=== PATIENT | female | born 1960 | race Hispanic/Latino ===

== ENCOUNTER 2018-06-21 20:47 | Inpatient (IN) | payer OTHER ==
[2018-06-21 22:03] LABS: Basophils # (Auto) 0.1 K/mm3 (0.0-0.1); Eosinophils # (Auto) 0.2 K/mm3 (0.0-0.4); Eosinophils % (Auto) 2.2 % (0.0-4.3); Lymphocytes # (Auto) 2.8 K/mm3 (1.2-5.4); Mean Corpuscular HGB Conc 35 % (30-34); Mean Corpuscular Volume 95 fl (79-97); Monocytes # (Auto) 0.6 K/mm3 (0.0-0.8); Monocytes % (Auto) 7.3 % (0.0-7.3); Platelet Count 371 K/mm3 (140-440); Red Blood Count 4.55 M/mm3 (3.65-5.03); Red Cell Distribution Width 14.5 % (13.2-15.2)
[2018-06-21 22:07] LABS: BUN/Creatinine Ratio 13; Blood Urea Nitrogen 8 mg/dL (7-17); Calcium 9.3 mg/dL (8.4-10.2); Hemolysis Index 18
[2018-06-21] MEDS ORDERED: DILAUDID IV ONE (22:17)
[2018-06-21] MEDS ORDERED: NITRO-BID 2% TP ONE (22:17)
[2018-06-21] MEDS ORDERED: ZOFRAN IV ONE (22:17)
--- NOTE | 2018-06-21 22:19 | Emergency Department Report ---
ED Chest Pain HPI - General Chief Complaint: Chest Pain Stated Complaint: CHEST PAIN Time Seen by Provider: 06/21/18 22:06 Source: EMS Mode of arrival: Stretcher Limitations: No Limitations - History of Present Illness Initial Comments: 57-year-old female with a past medical history of CAD with stent placement in 2008, hypertension, and emphysema (continues to smoke) presents to the hospital with complaints of left sided chest pain that a past 3 days. Patient states it feels similar to when she had her last heart attack. Pain was intermittent but now become a more constant and severe. She called EMS over the weekend. When they came to assess her and she told her her EKG was normal and therefore patient elected not to come to the hospital. Patient states that pain continued. It is worse with movement and breathing. No change with palpation. Pain radiates down the left arm. Positive associated nausea without vomiting. Patient is compliant with aspirin 81 mg, carvedilol, and amlodipine. PMD: Dr. Luna. She does not have a commercial subcontractor. Patient received aspirin and nitroglycerin in route to the hospital with temporary improvement in pain. Severity scale (0 -10): 5 - Related Data Allergies Allergy/AdvReac Type Severity Reaction Status Date / Time No Known Allergies Allergy Unverified 06/21/18 21:17 Heart Score - HEART Score History: Moderately suspicious EKG: Non-specific Age: 45-65 Risk factors: > 3 risk factors or hx of atherosclerotic disease Troponin: < normal limit HEART Score: 5 ED Review of Systems ROS: Stated complaint: CHEST PAIN Other details as noted in HPI Comment: All other systems reviewed and negative ED Past Medical Hx - Past Medical History Hx Hypertension: Yes Hx Heart Attack/AMI: Yes (2008) Hx COPD: Yes (emphysema) - Surgical History Past Surgical History?: Yes Hx Coronary Stent: Yes - Social History Smoking Status: Current Every Day Smoker Substance Use Type: None ED Physical Exam - General Limitations: No Limitations - Other Other exam information: General: No limitations, patient is alert in no acute distress Head exam: Atraumatic, normocephalic Eyes exam: Normal appearance, pupils equal reactive to light, extraocular movements intact ENT: Moist mucous membrane Neck exam: Normal inspection, full range of motion, no meningismus nontender Respiratory exam: Clear to auscultation bilateral, no wheezes, rales, crackles Cardiovascular: Normal rate and rhythm, normal heart sounds, left-sided chest wa ll nontender Abdomen: Soft, nondistended, and nontender, with normal bowel sounds, no rebound, or guarding Extremity: Full range of motion normal inspection no deformity, no calf tenderness or leg edema Back: Normal Inspection, full range of motion, no tenderness Neurologic: Alert, oriented x3, cranial nerves intact, no motor or sensory deficit Psychiatric: normal affect, normal mood Skin: Warm, dry, intact ED Course Vital Signs 06/21/18 06/21/18 06/21/18 21:03 21:19 21:31 Temperature 98.3 F Pulse Rate 90 109 H Respiratory 21 16 30 H Rate Blood Pressure 106/74 Blood Pressure 124/90 [Left] O2 Sat by Pulse 96 96 95 Oximetry 06/21/18 06/21/18 22:00 22:32 Temperature Pulse Rate 98 H 104 H Respiratory 15 Rate Blood Pressure 133/74 144/93 Blood Pressure [Left] O2 Sat by Pulse 97 Oximetry SALLY score - Sally Score Age > 65: (0) No Aspirin use within the Past 7 Days: (1) Yes 3 or more CAD Risk Factors: (1) Yes 2 or more Angina events in past 24 hrs: (1) Yes Known CAD with more than 50% Stenosis: (0) No Elevated Cardiac Markers: (0) No ST Deviation Greater than 0.5mm: (0) No SALLY Score: 3 ED Medical Decision Making - Lab Data Result diagrams: 06/21/18 21:27 06/21/18 21:27 Lab Results 06/21/18 06/21/18 Range/Units 21:27 21:27 WBC 8.3 (4.5-11.0) K/mm3 RBC 4.55 (3.65-5.03) M/mm3 Hgb 15.0 H (10.1-14.3) gm/dl Hct 43.0 H (30.3-42.9) % MCV 95 (79-97) fl MCH 33 H (28-32) pg MCHC 35 H (30-34) % RDW 14.5 (13.2-15.2) % Plt Count 371 (140-440) K/mm3 Lymph % (Auto) 34.0 (13.4-35.0) % [place] % (Auto) 7.3 (0.0-7.3) % Eos % (Auto) 2.2 (0.0-4.3) % Baso % (Auto) Psychologist Chief Lymph # 2.8 (1.2-5.4) K/mm3 [place] # 0.6 (0.0-0.8) K/mm3 Eos # 0.2 (0.0-0.4) K/mm3 Baso # 0.1 (0.0-0.1) K/mm3 Seg Neutrophils % 54.9 (40.0-70.0) % Seg Neutrophils # 4.6 (1.8-7.7) K/mm3 Sodium 136 L (137-145) mmol/L Potassium 4.1 (3.6-5.0) mmol/L Chloride 99.4 (98-107) mmol/L Carbon Dioxide 22 (22-30) mmol/L Anion Gap 19 mmol/L BUN 8 (7-17) mg/dL Creatinine 0.6 L (0.7-1.2) mg/dL Estimated GFR > 60 ml/min BUN/Creatinine Ratio 13 % Glucose 86 (65-100) mg/dL Calcium 9.3 (8.4-10.2) mg/dL Troponin T < 0.010 (0.00-0.029) ng/mL - EKG Data -: EKG Interpreted by Nd EKG shows normal: sinus rhythm, axis (qrs 20), QRS complexes (qrsd 91), ST-T waves (no stemi) Rate: normal (894) - EKG Data When compared to previous EKG there are: previous EKG unavailable 06/21/18 23:04 repeat ekg at 22:48 without stemi - Radiology Data Radiology results: report reviewed PROCEDURE: XR CHEST 1V AP TECHNIQUE: Frontal portable view of the chest HISTORY: Chest Pain COMPARISONS: None FINDINGS: There is prominence of the interstitial markings in both lungs with peribronchial thickening and the appearance of patchy areas of pulmonary consolidation in both lung bases. The cardiac silhouette appears to be normal size. There is atherosclerotic vascular calcification of the thoracic aorta. The bony structures are unremarkable. IMPRESSION: 1. Bilateral interstitial and airspace process. Comparison with previous imaging studies or CT chest would be helpful for further evaluation. - Medical Decision Making Patient presents to the hospital complaining of left-sided chest pain similar to previous [facility]. Pain 3 days. EKG without staining. Initial enzymes negative. Patient was treated with Dilaudid 0.5 mg, Zofran, and half inch Nitropaste to chest wall. Aspirin received prior to arrival. Chest x-ray read by radiologist as bilateral distress disease patchy infiltrate. Patient does not have infectious symptoms and no signs of fever or leukocytosis. Patient does have a history of emphysema and has clear breath sounds. Given this x-ray reading blood culture was ordered and Rocephin and azithromycin ordered for community-acquired pneumonia. - Differential Diagnosis VA, PE, atypical chest pain, costochondritis, pneumothorax Critical Care Time: No Critical care attestation.: If time is entered above; I have spent that time in minutes in the direct care of this critically ill patient, excluding procedure time. ED Disposition Clinical Impression: Chest pain, Hx of heart artery stent, History of emphysema, Pulmonary infiltrate Disposition: OP ADMIT IP TO THIS HOSP Is pt being admited?: Yes Condition: Stable Time of Disposition: 22:19 (DR Bravo/hosp)
--- NOTE | 2018-06-21 22:30 | XRay Report ---
PROCEDURE: XR CHEST 1V AP TECHNIQUE: Frontal portable view of the chest HISTORY: Chest Pain COMPARISONS: None FINDINGS: There is prominence of the interstitial markings in both lungs with peribronchial thickening and the appearance of patchy areas of pulmonary consolidation in both lung bases. The cardiac silhouette appears to be normal size. There is atherosclerotic vascular calcification of the thoracic aorta. The bony structures are unremarkable. IMPRESSION: 1. Bilateral interstitial and airspace process. Comparison with previous imaging studies or CT chest would be helpful for further evaluation. This document is electronically signed by Sujata Paulson MD., June 21 2018 10:28:20 PM ET
[2018-06-21] MEDS ORDERED: ROCEPHIN/NS 1 GM/50 ML 1 GM/50 ML BAG IV ONE (23:05)
[2018-06-21] MEDS ORDERED: ZITHROMAX 500 MG in NACL 0.9% 250ML 250 ML IV ONE (23:05)
[2018-06-21] MEDS ORDERED: TYLENOL PO PRN (23:43)
[2018-06-21] MEDS ORDERED: SODIUM CHLORIDE FLUSH SYRINGE 10 ML IV PRN (23:43)
[2018-06-21] MEDS ORDERED: NACL 0.9% 1000 ML IV ONE (23:50)
[2018-06-22] MEDS: PERCOCET 5/325 PO PRN ×4 (00:26→21:16)
[2018-06-22] MEDS: PEPCID PO SCH ×3 (00:26→21:16)
[2018-06-22] MEDS ORDERED: NACL 0.9% IV ONE (00:53)
--- NOTE | 2018-06-22 01:06 | History and Physical Report ---
History of Present Illness Date of examination: 06/21/18 Date of admission: 06/21/18 22:21 Chief complaint: Chest pain History of present illness: Patient is a 57-year-old female with history of COPD who presented to the ED on account of 3 days' history of left-sided chest pain. She described it as sharp in character, constant in duration, radiating to the left arm and rated 10 over 10. No known aggravating or relieving factors. She has associated s hortness of breath, chills without fever, headaches, nausea without vomiting and lightheadedness. She denies diaphoresis, palpitation, leg swelling, orthopnea, PND, sore throat, runny nose or congestion. She also has positive history of epigastric pain, no constipation, diarrhea, dysuria or frequency. Past History Past Medical History: CAD, COPD Past Surgical History: Other (lung biopsy, cardiac stent placement x1) Social history: smoking (20 years history of cigarette smoking. She currently smokes 1 pack per day. She denies alcohol or illicit drug use) Family history: other (reviewed and noncontributory) Medications and Allergies Allergies Allergy/AdvReac Type Severity Reaction Status Date / Time No Known Allergies Allergy Unverified 06/21/18 21:17 Home Medications Medication Instructions Recorded Confirmed Last Taken Type Carvedilol [Coreg] 12.5 mg PO BID 06/22/18 06/22/18 1 Day Ago History ~06/21/18 amLODIPine [Norvasc] 10 mg PO DAILY 06/22/18 06/22/18 1 Day Ago History ~06/21/18 Active Meds: Active Medications Acetaminophen (Tylenol) 650 mg PO Q4H PRN PRN Reason: Pain MILD(1-3)/Fever >100.5/SCOTT Albuterol/Ipratropium (Duoneb *Not For Prn Use*) 1 ampul IH Q6HRT ON LICENSE OF [facility] Enoxaparin Sodium (Lovenox) 40 mg SUB-Q QDAY ON LICENSE OF [facility] Famotidine (Pepcid) 20 mg PO BID ON LICENSE OF [facility] Last Admin: 06/22/18 00:26 Dose: 20 mg Documented by: Hydromorphone HCl (Dilaudid) 1 mg IV Q3H PRN PRN Reason: Pain , Severe (7-10) Azithromycin 500 mg/ Sodium (Chloride) 250 mls @ 250 mls/hr IV Q24HR JOSELIN Ceftriaxone Sodium (Rocephin/Ns 1 Gm/50 Ml) 1 gm in 50 mls @ 100 mls/hr IV Q24HR JOSELIN; Protocol Sodium Chloride (Nacl 0.9% 1000 Ml) 1,980 mls @ 999 mls/hr IV BOLUS ONE Stop: 06/22/18 02:51 Ondansetron HCl (Zofran) 4 mg IV Q8H PRN PRN Reason: Nausea And Vomiting Oxycodone/Acetaminophen (Percocet 5/325) 1 tab PO Q4H PRN PRN Reason: Pain, Moderate (4-6) Last Admin: 06/22/18 00:26 Dose: 1 tab Documented by: Pneumococcal Polyvalent Vaccine (Pneumovax 23) 0.5 ml IM .ONCE ONE Stop: 06/22/18 12:01 Sodium Chloride (Sodium Chloride Flush Syringe 10 Ml) 10 ml IV BID JOSELIN Sodium Chloride (Sodium Chloride Flush Syringe 10 Ml) 10 ml IV PRN PRN PRN Reason: LINE FLUSH Review of Systems All systems: negative (except as documented in the HPI, all other systems were reviewed and negative) Exam - Constitutional Vitals: Temp Pulse Resp BP Pulse Ox 98.3 F 92 H 15 144/93 91 06/21/18 21:03 06/21/18 23:31 06/21/18 23:31 06/21/18 23:31 06/21/18 23:31 General appearance: Present: no acute distress, well-nourished - EENT Eyes: Present: PERRL, EOM intact ENT: hearing intact, clear oral mucosa - Neck Neck: Present: supple, normal ROM - Respiratory Respiratory effort: normal Respiratory: left: other (pain is reproducible), bilateral: CTA - Cardiovascular Rhythm: regular Heart Sounds: Present: S1 & S2. Absent: rub, click - Extremities Extremities: No edema Peripheral Pulses: within normal limits - Abdominal General gastrointestinal: Present: soft, non-tender, non-distended, normal bowel sounds Female genitourinary: Present: deferred - Integumentary Integumentary: Present: clear, warm, dry - Musculoskeletal Musculoskeletal: gait normal, strength equal bilaterally - Psychiatric Psychiatric: appropriate mood/affect, intact judgment & insight - Neurologic Neurologic: CNII-XII intact, moves all extremities Results - Labs CBC & Chem 7: 06/21/18 21:27 06/21/18 21:27 Labs: Laboratory Last Values WBC 8.3 K/mm3 (4.5-11.0) 06/21/18 21: RBC 4.55 M/mm3 (3.65-5.03) 06/21/18 21: Hgb 15.0 gm/dl (10.1-14.3) H 06/21/18 21:27 Hct 43.0 % (30.3-42.9) H 06/21/18 21:27 MCV 95 fl (79-97) 06/21/18 21: MCH 33 pg (28-32) H 06/21/18 21: MCHC 35 % (30-34) H 06/21/18: RDW 14.5 % (13.2-15.2) 06/21/18 21: Plt Count 371 K/mm3 (140-440) 06/21/18 21: Lymph % (Auto) 34.0 % (13.4-35.0) 06/21/18 21: [place] % (Auto) 7.3 % (0.0-7.3) 06/21/18 21: Eos % (Auto) 2.2 % (0.0-4.3) 06/21/18: Baso % (Auto) Second Language Tutor 06/21/18 21: Lymph # 2.8 K/mm3 (1.2-5.4) 06/21/18 21: [place] # 0.6 K/mm3 (0.0-0.8) 06/21/18: Eos # 0.2 K/mm3 (0.0-0.4) 06/21/18: Baso # 0.1 K/mm3 (0.0-0.1) 06/21/18: Seg Neutrophils % 54.9 % (40.0-70.0) 06/21/18: Seg Neutrophils # 4.6 K/mm3 (1.8-7.7) 06/21/18 21: Sodium 136 mmol/L (137-145) L 06/21/18: Potassium 4.1 mmol/L (3.6-5.0) 04/09/19 21:27 Chloride 99.4 mmol/L (98-107) 06/21/18 21:27 Carbon Dioxide 22 mmol/L (22-30) 06/21/18 21:27 Anion Gap 19 mmol/L 06/21/18 21:27 BUN 8 mg/dL (7-17) 06/21/18 21:27 Creatinine 0.6 mg/dL (0.7-1.2) L 06/21/18 21:27 Estimated GFR > 60 ml/min 06/21/18 21:27 BUN/Creatinine Ratio 13 % 06/21/18 21:27 Glucose 86 mg/dL (65-100) 06/21/18 21:27 Calcium 9.3 mg/dL (8.4-10.2) 06/21/18 21:27 Troponin T < 0.010 ng/mL (0.00-0.029) 06/21/18 21:27 Assessment and Plan Assessment and plan: Sepsis, probably secondary to pneumonia -On sepsis protocol -On IV antibiotics with Rocephin and azithromycin -Chest x-ray showed bilateral interstitial and airspace process, follow-up CT chest -Blood cultures pending Atypical chest pain, rule out ACS -On chest pain pathway -Further evaluation with stress test COPD -No acute exacerbation -On neb treatment History of CAD status post stent placement Tobacco abuse -Cessation recommended DVT prophylaxis with Lovenox Disposition: For discharge when medically stable Time spent: 38 minutes
[2018-06-22] MEDS: DILAUDID IV PRN ×3 (01:23→11:15)
[2018-06-22] MEDS: DUONEB *Not for PRN Use IH SCH ×4 (02:29→19:46)
[2018-06-22] MEDS: ZOFRAN IV PRN ×3 (03:11→18:16)
[2018-06-22] MEDS ORDERED: NITRO-BID 2% TP ONE (03:35)
[2018-06-22 04:11] LABS: Chol/HDL Ratio 5.9 %
[2018-06-22] MEDS ORDERED: LEXISCAN IV ONE ×2 (09:11→09:19)
[2018-06-22] MEDS ORDERED: ZITHROMAX 500 MG in NACL 0.9% 250ML 250 ML IV SCH (10:00)
[2018-06-22] MEDS ORDERED: ZOFRAN ONE (11:09)
[2018-06-22] MEDS ORDERED: PNEUMOVAX 23 IM ONE (12:00)
[2018-06-22] MEDS ORDERED: AFLURIA QUAD 2018-2019 SYRINGE IM ONE (12:00)
--- NOTE | 2018-06-22 12:08 | Cat Scan Report ---
CT CHEST WITHOUT CONTRAST: HISTORY: Abnormal chest x-ray. COMPARISON: AP chest dated 06/21/18. TECHNIQUE: Helical CT in 1.25mm intervals without IV contrast. Sagittal and coronal reformatted images. FINDINGS: Thyroid gland: Normal. Tracheobronchial tree: Normal. Esophagus: Normal. Heart: Normal. Pericardium: Normal. Mediastinum: There are a few mildly enlarged mediastinal lymph nodes. A 1.4 cm right paratracheal lymph node is identified. A 1.8 cm precarinal lymph node is identified. Slightly prominent right hilar lymph nodes are also suspected although there are poorly imaged without IV contrast. Lung Gallo: The interstitial markings are prominent throughout both lungs. Septal thickening is identified bilaterally. This may represent chronic interstitial changes or interstitial edema. No advanced fibrotic changes or honeycombing is identified. No nodule or infiltrate. Pleural Spaces: Normal. Musculoskeletal: Intact. IMPRESSION: Prominent interstitium throughout both lungs. This could represent nonspecific interstitial lung disease or interstitial edema. Please correlate with the clinical presentation of the patient. Mildly enlarged mediastinal lymph nodes as described.
[2018-06-22] MEDS: LOVENOX SUB-Q SCH (14:03)
[2018-06-22] MEDS: ROCEPHIN/NS 1 GM/50 ML 1 GM/50 ML BAG IV SCH (14:04)
[2018-06-22] MEDS: SODIUM CHLORIDE FLUSH SYRINGE 10 ML IV SCH ×2 (14:13→21:18)
--- NOTE | 2018-06-22 16:51 | Discharge Summary ---
Providers - Providers Date of Admission: 06/21/18 22:21 Date of discharge: 06/22/18 Attending physician: HILL ZUNIGA Primary care physician: JEANNE PUENTES MD Hospitalization Condition: Stable Disposition: DC-01 TO HOME OR SELFCARE Time spent for discharge: 32 min Core Measure Documentation - Palliative Care Palliative Care/ Comfort Measures: Not Applicable Exam - Constitutional Vitals: Temp Pulse Resp BP Pulse Ox 98.2 F 111 H 18 114/79 94 06/22/18 12:57 06/22/18 12:57 06/22/18 12:57 06/22/18 12:57 06/22/18 12:57 Plan Follow up with: JEANNE PUENTES MD [Primary Care Provider] - 7 Days
--- NOTE | 2018-06-22 16:52 | Progress Note ---
Assessment and Plan Assessment and plan: --Acute systolic congestive heart failure; EF 30% manage with diuretics, beta blockers, geovanna inhibitors, nitrates Low-sodium diet, fluid restriction --Sepsis, probably secondary to pneumonia Continue IV antibiotics, follow cultures, supportive care --Atypical chest pain, rule out ACS Stress test negative for reversible ischemia , ejection fraction 30% --COPD Acute exacerbation, oxygen nebulizers and IV steroids Antibiotics, supportive --History of CAD status post stent placement; stable Cardiology evaluation inpatient versus outpatient --Tobacco abuse Smoking cessation nicotine patch as needed --DVT prophylaxis with Lovenox Monitor the patient closely and adjust management as needed Possible discharge tomorrow if stable History Interval history: Patient seen and examined medical records reviewed The patient underwent stress test yesterday Negative for for reversible ischemia, EF 30% Patient feels slightly better no new complaints Vital signs noted Hospitalist Physical - Constitutional Vitals: Temp Pulse Resp BP Pulse Ox 98.2 F 111 H 18 114/79 94 06/22/18 12:57 06/22/18 12:57 06/22/18 12:57 06/22/18 12:57 06/22/18 12:57 General appearance: Present: no acute distress, well-nourished - EENT Eyes: Present: PERRL, EOM intact - Neck Neck: Present: supple, normal ROM - Respiratory Respiratory effort: normal Respiratory: bilateral: diminished, rales, negative: rhonchi, wheezing - Cardiovascular Rhythm: regular Heart Sounds: Present: S1 & S2 - Extremities Extremities: no ischemia, No edema - Abdominal General gastrointestinal: soft, non-tender, non-distended - Integumentary Integumentary: Present: clear, warm - Psychiatric Psychiatric: appropriate mood/affect, cooperative - Neurologic Neurologic: moves all extremities Results - Labs CBC & Chem 7: 06/21/18 21:27 06/21/18 21:27 Labs: Laboratory Last Values WBC 8.3 K/mm3 (4.5-11.0) 06/21/18 21:27 RBC 4.55 M/mm3 (3.65-5.03) 06/21/18 21:27 Hgb 15.0 gm/dl (10.1-14.3) H 06/21/18 21:27 Hct 43.0 % (30.3-42.9) H 06/21/18 21:27 MCV 95 fl (79-97) 06/21/18 21: MCH 33 pg (28-32) H 06/21/18 21: MCHC 35 % (30-34) H 06/21/18 21:27 RDW 14.5 % (13.2-15.2) 06/21/18 21:27 Plt Count 371 K/mm3 (140-440) 06/21/18 21:27 Lymph % (Auto) 34.0 % (13.4-35.0) 06/21/18 21:27 [place] % (Auto) 7.3 % (0.0-7.3) 06/21/18 21: Eos % (Auto) 2.2 % (0.0-4.3) 06/21/18 21: Baso % (Auto) Assignment Officer 06/21/18 21: Lymph # 2.8 K/mm3 (1.2-5.4) 06/21/18 21: [place] # 0.6 K/mm3 (0.0-0.8) 06/21/18 21: Eos # 0.2 K/mm3 (0.0-0.4) 06/21/18 21: Baso # 0.1 K/mm3 (0.0-0.1) 06/21/18 21: Seg Neutrophils % 54.9 % (40.0-70.0) 06/21/18 21: Seg Neutrophils # 4.6 K/mm3 (1.8-7.7) 06/21/18 21:27 Sodium 136 mmol/L (137-145) L 06/21/18 21:27 Potassium 4.1 mmol/L (3.6-5.0) 06/21/18 21: Chloride 99.4 mmol/L (98-107) 06/21/18 21: Carbon Dioxide 22 mmol/L (22-30) 06/21/18: Anion Gap 19 mmol/L 06/21/18 21:27 BUN 8 mg/dL (7-17) 06/21/18 21:27 Creatinine 0.6 mg/dL (0.7-1.2) L 06/21/18 21:27 Estimated GFR > 60 ml/min 06/21/18 21:27 BUN/Creatinine Ratio 13 % 06/21/18 21:27 Glucose 86 mg/dL (65-100) 06/21/18 21:27 Lactic Acid 1.70 mmol/L (0.7-2.0) 06/22/18 00:37 Calcium 9.3 mg/dL (8.4-10.2) 06/21/18 21:27 Troponin T 0.030 ng/mL (0.00-0.029) H D 06/22/18 03:17 Triglycerides 180 mg/dL (2-149) H 06/22/18 03:17 Cholesterol 177 mg/dL (50-199) 06/22/18 03:17 LDL Cholesterol Direct 131 mg/dL (50-130) H 06/22/18 03:17 HDL Cholesterol 30 mg/dL (40-59) L 06/22/18 03:17 Cholesterol/HDL Ratio 5.90 % 06/22/18 03:17 Active Medications - Current Medications Current Medications: Generic Name Dose Route Start Last Admin Trade Name Freq PRN Reason Stop Dose Admin Acetaminophen 650 mg 06/21/18 23:43 Tylenol PO Q4H PRN Pain MILD(1-3)/Fever >100.5/SCOTT Albuterol/Ipratropium 1 ampul 06/22/18 02:00 06/22/18 13:29 Duoneb *Not For Prn Use* IH Not Given Q6HRT [facility] Enoxaparin Sodium 40 mg 06/22/18 10:00 06/22/18 14:03 Lovenox SUB-Q 40 mg QDAY JOSELIN Administration Famotidine 20 mg 06/21/18 23:45 06/22/18 13:59 Pepcid PO 20 mg BID JOSELIN Administration Hydromorphone HCl 1 mg 06/21/18 23:46 06/22/18 11:15 Dilaudid IV 1 mg Q3H PRN Administration Pain , Severe (7-10) Azithromycin 500 mg/ Sodium 250 mls @ 250 mls/hr 06/22/18 10:00 Chloride IV Q24HR JOSELIN Ceftriaxone Sodium 1 gm in 50 mls @ 100 mls/hr 06/22/18 10:00 06/22/18 14:04 Rocephin/Ns 1 Gm/50 Ml IV 100 mls/hr Q24HR JOSELIN Administration Protocol Ondansetron HCl 4 mg 06/21/18 23:43 06/22/18 11:09 Zofran IV 4 mg Q8H PRN Administration Nausea And Vomiting Oxycodone/Acetaminophen 1 tab 06/21/18 23:43 06/22/18 13:57 Percocet 5/325 PO 1 tab Q4H PRN Administration Pain, Moderate (4-6) Sodium Chloride 10 ml 06/22/18 10:00 06/22/18 14:13 Sodium Chloride Flush Syringe 10 Ml IV 10 ml BID JOSELIN Administration Sodium Chloride 10 ml 06/21/18 23:43 Sodium Chloride Flush Syringe 10 Ml IV PRN PRN LINE FLUSH Nutrition/Malnutrition Assess - Dietary Evaluation Nutrition/Malnutrition Findings: Nutrition Notes Start: 06/22/18 15:13 Freq: Status: Active Protocol: Document 06/22/18 15:13 LM (Rec: 06/22/18 15:19 LM [id number]) Co-Sign 06/22/18 15:13 LP Nutrition Notes 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 Per nurse, pt ate about 50% of breakfast and did not eat lunch. Is patient on ventilator? No Is Patient Ambulatory and/or Out of Bed No REE-(Reserve-St. Jeor-confined to bed) [phone] Calculation [facility] Additional Notes Protein need: 53-66 g (0.8-1 g /kg) Fluid needs: 1 ml/kcal Nutrition Intervention Change Diet Order: Continue Cardiac Follow-Up By: 06/23/18 Additional Comments F/U: MST assessment
[2018-06-23] MEDS: DUONEB *Not for PRN Use IH SCH ×5 (02:02→19:23)
[2018-06-23] MEDS ORDERED: LASIX IV NR (08:09)
[2018-06-23] MEDS ORDERED: XANAX PO NR (08:10)
--- NOTE | 2018-06-23 08:47 | Progress Note ---
Assessment and Plan Assessment and plan: --Acute hypoxic respiratory failure ; Probably secondary to acute exacerbation of CHF, partly COPD exacerbation Continue anti-failure medications, oxygen titrated O2 sats more than 90% BiPAP as needed, IV Lasix, chest x-ray Nebulizers IV steroids --Acute systolic congestive heart failure; EF 30% manage with diuretics, beta blockers, geovanna inhibitors, nitrates Low-sodium diet, fluid restriction --Sepsis, pneumonia; community-acquired ,antibiotics, follow cultures, supportive care --Atypical chest pain, rule out ACS Stress test negative for reversible ischemia , ejection fraction 30% --COPD: Acute exacerbation, oxygen nebulizers and IV steroids Antibiotics, supportive --History of CAD status post stent placement; stable Cardiology evaluation inpatient versus outpatient --Tobacco abuse Smoking cessation nicotine patch as needed --DVT prophylaxis with Lovenox Monitor the patient closely and adjust management as needed Possible discharge 1-2 days if stable History Interval history: Nurse called and reported patient is complaining of acute shortness of breath Patient received breathing treatment, mild improvement, O2 sats improved from 88-90-92 Received 1 Lasix, nebulizers, IV antibiotics changed to by mouth Patient feels slightly better Alert awake oriented 3 mild distress Vital signs reviewed Hospitalist Physical - Constitutional Vitals: Temp Pulse Resp BP Pulse Ox 97.4 F L 119 H 18 107/59 88 06/23/18 08:02 06/23/18 08:02 06/23/18 08:02 06/23/18 08:02 06/23/18 08:17 General appearance: Present: no acute distress, well-nourished - EENT Eyes: Present: PERRL, EOM intact - Neck Neck: Present: supple, normal ROM - Respiratory Respiratory effort: normal Respiratory: bilateral: diminished, rales, negative: rhonchi, wheezing - Cardiovascular Rhythm: regular Heart Sounds: Present: S1 & S2 - Extremities Extremities: no ischemia - Abdominal General gastrointestinal: soft, non-tender, non-distended, normal bowel sounds - Integumentary Integumentary: Present: clear, warm - Psychiatric Psychiatric: appropriate mood/affect, cooperative - Neurologic Neurologic: moves all extremities Results - Labs CBC & Chem 7: 06/21/18 21:27 06/21/18 21:27 Labs: Laboratory Last Values WBC 8.3 K/mm3 (4.5-11.0) 06/21/18 21:27 RBC 4.55 M/mm3 (3.65-5.03) 06/21/18 21: Hgb 15.0 gm/dl (10.1-14.3) H 06/21/18 21:27 Hct 43.0 % (30.3-42.9) H 06/21/18 21:27 MCV 95 fl (79-97) 06/21/18 21: MCH 33 pg (28-32) H 06/21/18 21: MCHC 35 % (30-34) H 06/21/18 21: RDW 14.5 % (13.2-15.2) 06/21/18 21: Plt Count 371 K/mm3 (140-440) 06/21/18 21: Lymph % (Auto) 34.0 % (13.4-35.0) 06/21/18 21: [place] % (Auto) 7.3 % (0.0-7.3) 06/21/18 21: Eos % (Auto) 2.2 % (0.0-4.3) 06/21/18 21:27 Baso % (Auto) Senior Speech Pathologist 06/21/18 21: Lymph # 2.8 K/mm3 (1.2-5.4) 06/21/18 21: [place] # 0.6 K/mm3 (0.0-0.8) 06/21/18 21: Eos # 0.2 K/mm3 (0.0-0.4) 06/21/18 21: Baso # 0.1 K/mm3 (0.0-0.1) 06/21/18 21:27 Seg Neutrophils % 54.9 % (40.0-70.0) 06/21/18 21: Seg Neutrophils # 4.6 K/mm3 (1.8-7.7) 06/21/18 21:27 Sodium 136 mmol/L (137-145) L 06/21/18 21: Potassium 4.1 mmol/L (3.6-5.0) 06/21/18 21: Chloride 99.4 mmol/L (98-107) 06/21/18 21: Carbon Dioxide 22 mmol/L (22-30) 06/21/18 21: Anion Gap 19 mmol/L 06/21/18 21:27 BUN 8 mg/dL (7-17) 06/21/18 21:27 Creatinine 0.6 mg/dL (0.7-1.2) L 06/21/18 21:27 Estimated GFR > 60 ml/min 06/21/18 21:27 BUN/Creatinine Ratio 13 % 06/21/18 21:27 Glucose 86 mg/dL (65-100) 06/21/18 21:27 Lactic Acid 1.70 mmol/L (0.7-2.0) 06/22/18 00:37 Calcium 9.3 mg/dL (8.4-10.2) 06/21/18 21:27 Troponin T 0.030 ng/mL (0.00-0.029) H D 06/22/18 03:17 Triglycerides 180 mg/dL (2-149) H 06/22/18 03:17 Cholesterol 177 mg/dL (50-199) 06/22/18 03:17 LDL Cholesterol Direct 131 mg/dL (50-130) H 06/22/18 03:17 HDL Cholesterol 30 mg/dL (40-59) L 06/22/18 03:17 Cholesterol/HDL Ratio 5.90 % 06/22/18 03:17 Active Medications - Current Medications Current Medications: Generic Name Dose Route Start Last Admin Trade Name Freq PRN Reason Stop Dose Admin Acetaminophen 650 mg 06/21/18 23:43 Tylenol PO Q4H PRN Pain MILD(1-3)/Fever >100.5/SCOTT Albuterol/Ipratropium 1 ampul 06/22/18 02:00 06/23/18 07:37 Duoneb *Not For Prn Use* IH 1 ampul Q6HRT JOSELIN Administration Alprazolam 1 mg 06/23/18 08:10 06/23/18 08:35 Xanax PO 06/23/18 09:30 1 mg ONCE NR Administration Atorvastatin Calcium 40 mg 06/23/18 22:00 Lipitor PO QHS JOSELIN Azithromycin 250 mg 06/23/18 10:00 Zithromax PO QDAY JOSELIN Carvedilol 6.25 mg 06/23/18 10:00 Coreg PO BID [facility] Enoxaparin Sodium 40 mg 06/22/18 10:00 06/22/18 14:03 Lovenox SUB-Q 40 mg QDAY JOSELIN Administration Famotidine 20 mg 06/21/18 23:45 06/22/18 21:16 Pepcid PO 20 mg BID JOSELIN Administration Furosemide 40 mg 06/23/18 08:09 06/23/18 08:37 Lasix IV 06/23/18 09:30 40 mg ONCE NR Administration Furosemide 40 mg 06/24/18 10:00 Lasix IV QDAY JOSELIN Hydromorphone HCl 1 mg 06/21/18 23:46 06/22/18 11:15 Dilaudid IV 1 mg Q3H PRN Administration Pain , Severe (7-10) Ceftriaxone Sodium 1 gm in 50 mls @ 100 mls/hr 06/22/18 10:00 06/22/18 14:04 Rocephin/Ns 1 Gm/50 Ml IV 100 mls/hr Q24HR JOSELIN Administration Protocol Lisinopril 10 mg 06/23/18 10:00 Zestril PO QDAY JOSELIN Ondansetron HCl 4 mg 06/21/18 23:43 06/22/18 18:16 Zofran IV 4 mg Q8H PRN Administration Nausea And Vomiting Oxycodone/Acetaminophen 1 tab 06/21/18 23:43 06/22/18 21:16 Percocet 5/325 PO 1 tab Q4H PRN Administration Pain, Moderate (4-6) Sodium Chloride 10 ml 06/22/18 10:00 06/22/18 21:18 Sodium Chloride Flush Syringe 10 Ml IV 10 ml BID JOSELIN Administration Sodium Chloride 10 ml 06/21/18 23:43 Sodium Chloride Flush Syringe 10 Ml IV PRN PRN LINE FLUSH Nutrition/Malnutrition Assess - Dietary Evaluation Nutrition/Malnutrition Findings: Nutrition Notes Start: 06/22/18 15:13 Freq: Status: Active Protocol: Document 06/22/18 15:13 LM (Rec: 06/22/18 15:19 LM [id number]) Co-Sign 06/22/18 15:13 LP Nutrition Notes Need for Assessment generated from: showplace manager Initial or Follow up Brief Note Current Diagnosis COPD,Coronary Artery Disease Current Diet Cardiac diet Height 5 ft Weight 66 kg [place] Body Weight (kg) 45.45 BMI 28.4 Subjective/Other Information Pt not in room at time of vist due to having tests. Per nurse, pt ate about 50% of breakfast and did not eat lunch. Is patient on ventilator? No Is Patient Ambulatory and/or Out of Bed No REE-([facility]-confined to bed) [phone] Calculation Used for Recommendations [facility] Additional Notes Protein need: 53-66 g (0.8-1 g /kg) Fluid needs: 1 ml/kcal Nutrition Intervention Change Diet Order: Continue Cardiac Follow-Up By: 06/23/18 Additional Comments F/U: MST assessment
--- NOTE | 2018-06-23 09:09 | XRay Report ---
AP CHEST: HISTORY: Shortness of breath Mild increase in interstitial prominence is demonstrated in both lungs since 06/21/18. I suspect this represents increased pulmonary venous congestion/interstitial edema. No consolidation, large pleural effusion or pneumothorax is identified. Heart size remains within normal limits. IMPRESSION: Increased pulmonary venous congestion since the exam 2 days ago.
[2018-06-23] MEDS ORDERED: HABITROL TD ONE (10:00)
[2018-06-23] MEDS ORDERED: ZITHROMAX PO SCH (10:00)
[2018-06-23] MEDS: ZITHROMAX PO SCH (10:56)
[2018-06-23] MEDS: COREG PO SCH ×2 (10:58→22:14)
[2018-06-23] MEDS: PEPCID PO SCH ×3 (10:58→22:13)
[2018-06-23] MEDS: ZESTRIL PO SCH (10:59)
[2018-06-23] MEDS: SOLU-Medrol IV SCH ×2 (11:04→22:13)
[2018-06-23] MEDS: ROCEPHIN/NS 1 GM/50 ML 1 GM/50 ML BAG IV SCH (11:07)
[2018-06-23] MEDS: LOVENOX SUB-Q SCH (11:08)
[2018-06-23] MEDS: SODIUM CHLORIDE FLUSH SYRINGE 10 ML IV SCH ×2 (11:17→22:14)
--- NOTE | 2018-06-23 11:23 | Consultation ---
History of Present Illness Consult date: 06/23/18 Requesting physician: HILL ZUNIGA Consult reason: congestive heart failure History of present illness: The pt is a 57 YO female with a past medical history of CAD s/p PCI in [place] in 2008, HTN, COPD, tobacco use. She is previously unknown to our practice. She presented with complaints of chest pain and SOB for several days prior to arrival. She describes her chest pain as a constant, nonexertional, nonradiating, midsternal aching which is aggravated by deep breathing and coughing and movement. She underwent lexiscan MPI stress test yesterday which was negative for active ischemia, showed fixed defects and EF 31% and thus cardiology has been consulted. On evaluation, pt continues to c/o pleuritic ches t pain and dyspnea and is requiring O2 via venti-mask. She denies any prior diagnosis of heart failure or cardiomyopathy. She has not regularly followed up with security operations center analyst since her PCI in 2008. Past History Past Medical History: CAD, COPD, hypertension Past Surgical History: Other (lung biopsy, cardiac stent placement x1) Social history: smoking (1 PPD). denies: alcohol abuse, prescription drug abuse Medications and Allergies Allergies Allergy/AdvReac Type Severity Reaction Status Date / Time No Known Allergies Allergy Unverified 06/21/18 21:17 Home Medications Medication Instructions Recorded Confirmed Last Taken Type Carvedilol [Coreg] 12.5 mg PO BID 06/22/18 06/22/18 1 Day Ago History ~06/21/18 amLODIPine [Norvasc] 10 mg PO DAILY 06/22/18 06/22/18 1 Day Ago History ~06/21/18 Active Meds: Active Medications Acetaminophen (Tylenol) 650 mg PO Q4H PRN PRN Reason: Pain MILD(1-3)/Fever >100.5/SCOTT Albuterol/Ipratropium (Duoneb *Not For Prn Use*) 1 ampul IH Q6HRT [facility] Last Admin: 06/23/18 07:37 Dose: 1 ampul Documented by: Alprazolam (Xanax) 0.25 mg PO Q8H PRN PRN Reason: Anxiety Atorvastatin Calcium (Lipitor) 40 mg PO QHS JOSELIN Azithromycin (Zithromax) 500 mg PO QDAY [facility] Last Admin: 06/23/18 10:56 Dose: 500 mg Documented by: Carvedilol (Coreg) 6.25 mg PO BID [facility] Last Admin: 06/23/18 10:58 Dose: 6.25 mg Documented by: Enoxaparin Sodium (Lovenox) 40 mg SUB-Q QDAY [facility] Last Admin: 06/23/18 11:08 Dose: 40 mg Documented by: Famotidine (Pepcid) 20 mg PO BID [facility] Last Admin: 06/23/18 10:58 Dose: 20 mg Documented by: Furosemide (Lasix) 40 mg IV QDAY [facility] Hydromorphone HCl (Dilaudid) 1 mg IV Q3H PRN PRN Reason: Pain , Severe (7-10) Last Admin: 06/22/18 11:15 Dose: 1 mg Documented by: Ceftriaxone Sodium (Rocephin/Ns 1 Gm/50 Ml) 1 gm in 50 mls @ 100 mls/hr IV Q24HR [facility]; Protocol Last Admin: 06/23/18 11:07 Dose: 100 mls/hr Documented by: Lisinopril (Zestril) 10 mg PO QDAY [facility] Last Admin: 06/23/18 10:59 Dose: 10 mg Documented by: Methylprednisolone Sodium Succinate (Solu-Medrol) 40 mg IV Q12HR [facility] Last Admin: 06/23/18 11:04 Dose: 40 mg Documented by: Ondansetron HCl (Zofran) 4 mg IV Q8H PRN PRN Reason: Nausea And Vomiting Last Admin: 06/22/18 18:16 Dose: 4 mg Documented by: Oxycodone/Acetaminophen (Percocet 5/325) 1 tab PO Q4H PRN PRN Reason: Pain, Moderate (4-6) Last Admin: 06/22/18 21:16 Dose: 1 tab Documented by: Sodium Chloride (Sodium Chloride Flush Syringe 10 Ml) 10 ml IV BID [facility] Last Admin: 06/23/18 11:17 Dose: 10 ml Documented by: Sodium Chloride (Sodium Chloride Flush Syringe 10 Ml) 10 ml IV PRN PRN PRN Reason: LINE FLUSH Review of Systems Constitutional: no weight loss, no weight gain, no fever, no chills, no sweats Ears, nose, mouth and throat: no ear pain, no nose pain, no sinus pressure, no sinus pain Cardiovascular: chest pain, shortness of breath, dyspnea on exertion, decreased exercise tolerance, no orthopnea, no palpitations, no rapid/irregular heart beat, no edema, no syncope, no lightheadedness, no paroxysmal nocturnal dyspnea, no leg edema Respiratory: cough, shortness of breath, dyspnea on exertion, wheezing, pain on inspiration, no congestion Gastrointestinal: no abdominal pain, no nausea, no vomiting, no diarrhea, no constipation, no change in bowel habits Genitourinary Female: no pelvic pain, no flank pain, no dysuria, no urinary frequency, no urgency Musculoskeletal: no neck stiffness, no neck pain, no shooting arm pain, no arm numbness/tingling, no low back pain, no shooting leg pain Integumentary: no rash, no pruritis, no redness, no sores, no wounds Neurological: no head injury, no paralysis, no weakness, no parathesias, no numbness, no tingling, no seizures, no syncope Psychiatric: no anxiety Endocrine: no cold intolerance, no heat intolerance Hematologic/Lymphatic: no easy bruising, no easy bleeding Allergic/Immunologic: wheezing Physical Examination Vital Signs Temp Pulse Resp BP Pulse Ox 98.3 F 90 21 124/90 96 06/21/18 21:03 06/21/18 21:03 06/21/18 21:03 06/21/18 21:03 06/21/18 21:03 General appearance: other (sob) HEENT: Positive: PERRL Neck: Positive: neck supple, trachea midline Cardiac: Positive: Reg Rate and Rhythm, S1/S2 Lungs: Positive: Decreased Breath Sounds Neuro: Positive: Grossly Intact Abdomen: Negative: Tender Skin: Negative: Rash Musculoskeletal: No Pain Extremities: Absent: edema Results 06/21/18 21:27 06/21/18 21:27 - Imaging and Cardiology Echo: pending EKG: report reviewed, image reviewed EKG interpretations - Telemetry EKG Rhythm: Sinus Rhythm - EKG Sinus rhythms and dysrhythmias: sinus rhythm Assessment and Plan F/u echo. Increase IV lasix to BID dosing. Agree with all other present cardiac management, including coreg, lisinopril, lipitor. Pt noted to have sinus tachycardia which appears to be physiologic secondary to HF, respiratory failure, COPD exac, etc. Pt would benefit from pulmonary consultation. D/w Dr. Zuniga. The patient has been seen in conjunction with Dr. Lockett who agrees with the assessment and plan of care. - Patient Problems (1) Acute HFrEF (heart failure with reduced ejection fraction) Current Visit: Yes Status: Acute (2) Acute respiratory failure Current Visit: Yes Status: Acute (3) Chest pain Current Visit: Yes Status: Acute (4) COPD exacerbation Current Visit: Yes Status: Acute (5) Sinus tachycardia Current Visit: Yes Status: Acute (6) HTN (hypertension) Current Visit: Yes Status: Chronic (7) CAD (coronary artery disease) Current Visit: Yes Status: Chronic (8) Stented coronary artery Current Visit: Yes Status: Chronic (9) Dyslipidemia Current Visit: Yes Status: Chronic (10) Tobacco use Current Visit: Yes Status: Chronic
[2018-06-23] MEDS: DILAUDID IV PRN (16:45)
[2018-06-23] MEDS: LASIX IV SCH (22:14)
[2018-06-24] MEDS: DUONEB *Not for PRN Use IH SCH ×5 (01:08→20:05)
[2018-06-24] MEDS: PERCOCET 5/325 PO PRN (02:15)
[2018-06-24] MEDS: XANAX PO PRN ×2 (02:16→21:53)
[2018-06-24 06:02] LABS: BUN/Creatinine Ratio 15; Blood Urea Nitrogen 6 mg/dL (7-17); Calcium 8.8 mg/dL (8.4-10.2); Hemolysis Index 9
--- NOTE | 2018-06-24 09:41 | Progress Note ---
Assessment and Plan Assessment and plan: --Hypophosphatemia; replenished per protocol and monitor levels --Hypokalemia; will replace per protocol and monitor levels --Acute hypoxic respiratory failure ; Probably secondary to acute exacerbation of CHF, partly COPD exacerbation Continue anti-failure medications, oxygen titrated O2 sats more than 90% Nebulizers IV steroids, evaluation for home oxygen at discharge --Acute systolic congestive heart failure; EF 30% manage with diuretics, beta blockers, geovanna inhibitors, nitrates Low-sodium diet, fluid restriction --COPD: Acute exacerbation, oxygen nebulizers and IV steroids Antibiotics, supportive --Sepsis, pneumonia; community-acquired ,antibiotics, follow cultures, supportive care --Atypical chest pain, rule out ACS Stress test negative for reversible ischemia , ejection fraction 30% --History of CAD status post stent placement; stable Cardiology evaluation inpatient versus outpatient --Dyslipidemia; continue statin --Tobacco abuse Smoking cessation nicotine patch as needed --DVT prophylaxis with Lovenox Ambulate as tolerated/physical therapy if needed Monitor the patient closely and adjust management as needed Possible discharge 1-2 days if stable History Interval history: Patient seen and examined medical records reviewed The patient feels better on nasal cannula oxygen Complaints of some shortness of breath last night Patient also complains of generalized body pains Alert awake oriented Vital signs reviewed Hospitalist Physical - Constitutional Vitals: Temp Pulse Resp BP Pulse Ox 97.9 F 119 H 18 103/73 95 06/24/18 08:27 06/24/18 08:27 06/24/18 08:27 06/24/18 08:27 06/24/18 08:27 General appearance: Present: no acute distress, well-nourished - EENT Eyes: Present: PERRL, EOM intact - Neck Neck: Present: supple, normal ROM - Respiratory Respiratory effort: normal Respiratory: bilateral: diminished, rhonchi, negative: rales, wheezing - Cardiovascular Rhythm: regular Heart Sounds: Present: S1 & S2 - Extremities Extremities: no ischemia, No edema - Abdominal General gastrointestinal: soft, non-tender, non-distended, normal bowel sounds - Integumentary Integumentary: Present: clear, warm - Psychiatric Psychiatric: appropriate mood/affect, cooperative - Neurologic Neurologic: CNII-XII intact, moves all extremities Results - Labs CBC & Chem 7: 06/21/18 21:27 06/24/18 04:49 Labs: Laboratory Last Values WBC 8.3 K/mm3 (4.5-11.0) 06/21/18 21: RBC 4.55 M/mm3 (3.65-5.03) 06/21/18 21:27 Hgb 15.0 gm/dl (10.1-14.3) H 06/21/18 21:27 Hct 43.0 % (30.3-42.9) H 06/21/18 21:27 MCV 95 fl (79-97) 06/21/18 21:27 MCH 33 pg (28-32) H 06/21/18 21:27 MCHC 35 % (30-34) H 06/21/18 21:27 RDW 14.5 % (13.2-15.2) 06/21/18 21:27 Plt Count 371 K/mm3 (140-440) 06/21/18 21:27 Lymph % (Auto) 34.0 % (13.4-35.0) 06/21/18 21:27 [place] % (Auto) 7.3 % (0.0-7.3) 06/21/18 21:27 Eos % (Auto) 2.2 % (0.0-4.3) 06/21/18 21: Baso % (Auto) C 13 Catapult Operator 06/21/18 21:27 Lymph # 2.8 K/mm3 (1.2-5.4) 06/21/18 21:27 [place] # 0.6 K/mm3 (0.0-0.8) 06/21/18 21: Eos # 0.2 K/mm3 (0.0-0.4) 06/21/18 21:27 Baso # 0.1 K/mm3 (0.0-0.1) 06/21/18 21:27 Seg Neutrophils % 54.9 % (40.0-70.0) 06/21/18 21: Seg Neutrophils # 4.6 K/mm3 (1.8-7.7) 06/21/18 21:27 Sodium 136 mmol/L (137-145) L 06/24/18 04:49 Potassium 3.2 mmol/L (3.6-5.0) L D 06/24/18 04:49 Chloride 93.8 mmol/L (98-107) L 06/24/18 04:49 Carbon Dioxide 27 mmol/L (22-30) 06/24/18 04:49 Anion Gap 18 mmol/L 06/24/18 04:49 BUN 6 mg/dL (7-17) L 06/24/18 04:49 Creatinine 0.4 mg/dL (0.7-1.2) L 06/24/18 04:49 Estimated GFR > 60 ml/min 06/24/18 04:49 BUN/Creatinine Ratio 15 % 06/24/18 04:49 Glucose 133 mg/dL (65-100) H 06/24/18 04:49 POC Glucose 123 (70-105) H 06/24/18 07:54 Lactic Acid 1.70 mmol/L (0.7-2.0) 06/22/18 00:37 Calcium 8.8 mg/dL (8.4-10.2) 06/24/18 04:49 Phosphorus 1.00 mg/dL (2.5-4.5) L 06/24/18 04:49 Magnesium 2.00 mg/dL (1.7-2.3) 06/24/18 04:49 Troponin T 0.030 ng/mL (0.00-0.029) H D 06/22/18 03:17 Triglycerides 180 mg/dL (2-149) H 06/22/18 03:17 Cholesterol 177 mg/dL (50-199) 06/22/18 03:17 LDL Cholesterol Direct 131 mg/dL (50-130) H 06/22/18 03:17 HDL Cholesterol 30 mg/dL (40-59) L 06/22/18 03:17 Cholesterol/HDL Ratio 5.90 % 06/22/18 03:17 Active Medications - Current Medications Current Medications: Generic Name Dose Route Start Last Admin Trade Name Freq PRN Reason Stop Dose Admin Acetaminophen 650 mg 06/21/18 23:43 Tylenol PO Q4H PRN Pain MILD(1-3)/Fever >100.5/SCOTT Albuterol/Ipratropium 1 ampul 06/22/18 02:00 06/24/18 07:23 Duoneb *Not For Prn Use* IH 1 ampul Q6HRT JOSELIN Administration Alprazolam 0.25 mg 06/23/18 10:00 06/24/18 02:16 Xanax PO 0.25 mg Q8H PRN Administration Anxiety Atorvastatin Calcium 40 mg 06/23/18 22:00 06/23/18 22:13 Lipitor PO 40 mg QHS JOSELIN Administration Azithromycin 500 mg 06/23/18 10:00 06/23/18 10:56 Zithromax PO 500 mg QDAY JOSELIN Administration Carvedilol 6.25 mg 06/23/18 10:00 06/23/18 22:14 Coreg PO Not Given BID [facility] Enoxaparin Sodium 40 mg 06/22/18 10:00 06/23/18 11:08 Lovenox SUB-Q 40 mg QDAY [facility] Administration Famotidine 20 mg 06/21/18 23:45 06/23/18 22:13 Pepcid PO 20 mg BID JOSELIN Administration Furosemide 40 mg 06/23/18 22:00 06/23/18 22:14 Lasix IV 40 mg BID JOSELIN Administration Hydromorphone HCl 1 mg 06/21/18 23:46 06/23/18 16:45 Dilaudid IV 1 mg Q3H PRN Administration Pain , Severe (7-10) Ceftriaxone Sodium 1 gm in 50 mls @ 100 mls/hr 06/22/18 10:00 06/23/18 11:07 Rocephin/Ns 1 Gm/50 Ml IV 100 mls/hr Q24HR JOSELIN Administration Protocol Potassium Phosphate 40 mmol/ 513.3333 mls @ 83 mls/hr 06/24/18 09:29 Sodium Chloride IV 06/24/18 15:40 ONCE ONE Lisinopril 10 mg 06/23/18 10:00 06/23/18 10:59 Zestril PO 10 mg QDAY JOSELIN Administration Methylprednisolone Sodium Succinate 40 mg 06/23/18 10:00 06/23/18 22:13 Solu-Medrol IV 40 mg Q12HR JOSELIN Administration Ondansetron HCl 4 mg 06/21/18 23:43 06/22/18 18:16 Zofran IV 4 mg Q8H PRN Administration Nausea And Vomiting Oxycodone/Acetaminophen 1 tab 06/21/18 23:43 06/24/18 02:15 Percocet 5/325 PO 1 tab Q4H PRN Administration Pain, Moderate (4-6) Sodium Chloride 10 ml 06/22/18 10:00 06/23/18 22:14 Sodium Chloride Flush Syringe 10 Ml IV 10 ml BID JOSELIN Administration Sodium Chloride 10 ml 06/21/18 23:43 Sodium Chloride Flush Syringe 10 Ml IV PRN PRN LINE FLUSH Nutrition/Malnutrition Assess - Dietary Evaluation Nutrition/Malnutrition Findings: Nutrition Notes Start: 06/22/18 15:13 Freq: Status: Active Protocol: Document 06/23/18 13:57 RM (Rec: 06/23/18 14:05 RM [id number]) Nutrition Notes Initial or Follow up Assessment Current Diagnosis COPD,Coronary Artery Disease, Heart Failure Current Diet Cardiac diet Labs/Tests Reviewed Pertinent Medications Lasix, Solu-Medrol Height 5 ft Weight 66 kg Usual Body Weight 68.18 kg [place] Body Weight (kg) 45.45 BMI 28.4 Weight change and time frame 3.2 % wt loss X 2-3 weeks Subjective/Other Information Pt stated that [employer]UM[employer] ADMIN her appetite was poor and she only drank fluids X 1 week. Stated she has only had milk since admission. Stated UBW was 150 lbs 2-3 weeks ago. No temporal or orbital wasting . Burn Absent Trauma Absent #1 Nutrition Diagnosis Inadequate oral intake Etiology decreased appetite As Evidenced by Signs and Symptoms pt statement that she has only had milk since admission Is patient on ventilator? No Is Patient Ambulatory and/or Out of Bed No REE-([facility]-confined [facility]) [phone] Calculation Used for Recommendations [facility] Additional Notes Protein need: 53-66 g (0.8-1 g /kg) Fluid needs: 1 ml/kcal Nutrition Intervention Change Diet Order: Continue Cardiac Add Supplement/Snack (indicate name/kcal Ensure Enlive 1 daily /protein ) Provides kCal: 350 Provides Protein (gm) 20 Goal #1 Meet at least 75% of calorie and protein needs via PO and ONS intakes Anticipated Discharge Needs: Cardiac diet Follow-Up By: 06/27/18 Additional Comments Follow for PO and ONS intakes
[2018-06-24] MEDS ORDERED: LASIX IV SCH (10:00)
[2018-06-24] MEDS: LOVENOX SUB-Q SCH (10:25)
[2018-06-24] MEDS: LASIX IV SCH ×2 (10:25→21:36)
[2018-06-24] MEDS: COREG PO SCH (10:25)
[2018-06-24] MEDS: ZITHROMAX PO SCH (10:26)
[2018-06-24] MEDS: SOLU-Medrol IV SCH ×2 (10:26→21:37)
[2018-06-24] MEDS: ROCEPHIN/NS 1 GM/50 ML 1 GM/50 ML BAG IV SCH (10:27)
[2018-06-24] MEDS: SODIUM CHLORIDE FLUSH SYRINGE 10 ML IV SCH ×2 (10:27→21:37)
[2018-06-24] MEDS: ZESTRIL PO SCH (10:27)
[2018-06-24] MEDS: PEPCID PO SCH ×2 (10:39→21:37)
--- NOTE | 2018-06-24 10:55 | Progress Note ---
Assessment and Plan Echo reviewed - EF 25-30%, abnormal diastolic function, basal anterior, mid anteroseptal, mid anterior, mid inderoseptal, apical septal, apical anterior and apical lateral wall segments hypokinetic, trace MR, mild to mod TR, RVSP 40mmHg. S/p lexiscan MPI stress test which was negative for active ischemia, showed fixed defects and EF 31%. Pt appears to be clinically improving. Cont present cardiac management. Await pulmonary consultation. Possible d/c home as early as tomorrow. The patient has been seen in conjunction with Dr. Lockett who agrees with the assessment and plan of care. - Patient Problems (1) Acute HFrEF (heart failure with reduced ejection fraction) Current Visit: Yes Status: Acute (2) Cardiomyopathy Current Visit: Yes Status: Chronic (3) Acute respiratory failure Current Visit: Yes Status: Acute (4) Chest pain Current Visit: Yes Status: Acute (5) COPD exacerbation Current Visit: Yes Status: Acute (6) Sinus tachycardia Current Visit: Yes Status: Acute (7) HTN (hypertension) Current Visit: Yes Status: Chronic (8) CAD (coronary artery disease) Current Visit: Yes Status: Chronic (9) Stented coronary artery Current Visit: Yes Status: Chronic (10) Dyslipidemia Current Visit: Yes Status: Chronic (11) Tobacco use Current Visit: Yes Status: Chronic Subjective Date of service: 06/24/18 Principal diagnosis: COPD; HF Interval history: pt resting in bed, states she is feeling better today. in SR on tele. Objective Vital Signs Temp Pulse Pulse Pulse Pulse Pulse Resp 06/24/18 09:32 85 85 86 22 06/24/18 08:27 97.9 F 119 H 18 06/24/18 03:30 98.4 F 122 H 18 06/24/18 01:09 127 H 06/23/18 23:32 98.5 F 122 H 18 06/23/18 22:14 115 H 06/23/18 22:00 121 H 06/23/18 19:36 98.1 F 116 H 18 06/23/18 19:33 115 H 06/23/18 19:25 06/23/18 19:23 113 H 06/23/18 16:13 97.9 F 116 H 18 06/23/18 15:00 112 H 06/23/18 14:45 110 H 06/23/18 10:59 120 H 06/23/18 10:58 120 H Resp BP Pulse Ox 06/24/18 09:32 98 06/24/18 08:27 103/73 95 06/24/18 03:30 107/67 94 06/24/18 01:09 20 06/23/18 23:32 104/67 96 06/23/18 22:14 101/71 06/23/18 22:00 06/23/18 19:36 101/71 93 06/23/18 19:33 18 06/23/18 19:25 97 06/23/18 19:23 18 06/23/18 16:13 91/62 90 06/23/18 15:00 18 06/23/18 14:45 18 06/23/18 10:59 118/80 06/23/18 10:58 118/80 - Physical Examination HEENT: Positive: PERRL Neck: Positive: neck supple, trachea midline Neuro: Positive: Grossly Intact Abdomen: Negative: Tender Skin: Negative: Rash Musculoskeletal: No Pain Extremities: Absent: edema - Labs and Meds Comprehensive Metabolic Panel 06/24/18 Range/Units 04:49 Sodium 136 L (137-145) mmol/L Potassium 3.2 L D (3.6-5.0) mmol/L Chloride 93.8 L (98-107) mmol/L Carbon Dioxide 27 (22-30) mmol/L BUN 6 L (7-17) mg/dL Creatinine 0.4 L (0.7-1.2) mg/dL Glucose 133 H (65-100) mg/dL Calcium 8.8 (8.4-10.2) mg/dL - Imaging and Cardiology EKG: report reviewed, image reviewed Echo: pending - EKG Sinus rhythms and dysrhythmias: sinus rhythm
[2018-06-24] MEDS ORDERED: KPHOS 40 MMOL in NACL 0.9% 500 ML 500 ML IV ONE (11:00)
[2018-06-24] MEDS ORDERED: NACL 0.9% 1000 ML 1,000 ML ONE (13:49)
--- NOTE | 2018-06-24 14:18 | Consultation ---
History of Present Illness Consult date: 06/24/18 Requesting physician: HILL ZUNIGA Reason for consult: COPD, hypoxemia History of present illness: 57 y/o female, smoker admitted with chest pain. has been followed by cards since admit. CXR appears to be consistent with volume overload. Was being diuresed and then subsequently became more short of breath and required more oxygen. IMS asked pulmonary to consult for possible COPD exacerbation. THIs am, patient is back on nasal cannula lying almost flat in bed and comfortable. patient's story is confusing but she states that she has been told she has COPD but does not follow with a lung physician. She also had some form of lung surgery (has a scar that is similar to thyroidectomy scar, but patient states that it was a lung surgery) and mass was removed but she cannot remember then name. None the less she is still smoking a pack per day and has done so it not more in her earlier years for the past 38 years. She is not attempting to stop. Past History Past Medical History: CAD, COPD, hypertension Past Surgical History: Other (lung biopsy, cardiac stent placement x1) Social history: smoking (1 PPD). denies: alcohol abuse, prescription drug abuse Family history: other (reviewed and noncontributory) Medications and Allergies Allergies Allergy/AdvReac Type Severity Reaction Status Date / Time No Known Allergies Allergy Unverified 06/21/18 21:17 Home Medications Medication Instructions Recorded Confirmed Last Taken Type Carvedilol [Coreg] 12.5 mg PO BID 06/22/18 06/22/18 1 Day Ago History ~06/21/18 amLODIPine [Norvasc] 10 mg PO DAILY 06/22/18 06/22/18 1 Day Ago History ~06/21/18 Active Meds: Active Medications Acetaminophen (Tylenol) 650 mg PO Q4H PRN PRN Reason: Pain MILD(1-3)/Fever >100.5/SCOTT Albuterol/Ipratropium (Duoneb *Not For Prn Use*) 1 ampul IH Q6HRT JOSELIN Last Admin: 06/24/18 13:30 Dose: Not Given Documented by: Alprazolam (Xanax) 0.25 mg PO Q8H PRN PRN Reason: Anxiety Last Admin: 06/24/18 02:16 Dose: 0.25 mg Documented by: Atorvastatin Calcium (Lipitor) 40 mg PO QHS [facility] Last Admin: 06/23/18 22:13 Dose: 40 mg Documented by: Azithromycin (Zithromax) 500 mg PO QDAY [facility] Last Admin: 06/24/18 10:26 Dose: 500 mg Documented by: Enoxaparin Sodium (Lovenox) 40 mg SUB-Q QDAY [facility] Last Admin: 06/24/18 10:25 Dose: 40 mg Documented by: Famotidine (Pepcid) 20 mg PO BID [facility] Last Admin: 06/24/18 10:39 Dose: 20 mg Documented by: Furosemide (Lasix) 40 mg IV BID [facility] Last Admin: 06/24/18 10:25 Dose: 40 mg Documented by: Hydromorphone HCl (Dilaudid) 1 mg IV Q3H PRN PRN Reason: Pain , Severe (7-10) Last Admin: 06/23/18 16:45 Dose: 1 mg Documented by: Ceftriaxone Sodium (Rocephin/Ns 1 Gm/50 Ml) 1 gm in 50 mls @ 100 mls/hr IV Q24HR [facility]; Protocol Last Admin: 06/24/18 10:27 Dose: 100 mls/hr Documented by: Potassium Phosphate 40 mmol/ (Sodium Chloride) 513.3333 mls @ 83 mls/hr IV ONCE ONE Stop: 06/24/18 17:11 Lisinopril (Zestril) 10 mg PO QDAY [facility] Last Admin: 06/24/18 10:27 Dose: 10 mg Documented by: Methylprednisolone Sodium Succinate (Solu-Medrol) 40 mg IV Q12HR [facility] Last Admin: 06/24/18 10:26 Dose: 40 mg Documented by: Metoprolol Tartrate (Lopressor) 25 mg PO BID [facility] Ondansetron HCl (Zofran) 4 mg IV Q8H PRN PRN Reason: Nausea And Vomiting Last Admin: 06/22/18 18:16 Dose: 4 mg Documented by: Oxycodone/Acetaminophen (Percocet 5/325) 1 tab PO Q4H PRN PRN Reason: Pain, Moderate (4-6) Last Admin: 06/24/18 02:15 Dose: 1 tab Documented by: Sodium Chloride (Sodium Chloride Flush Syringe 10 Ml) 10 ml IV BID [facility] Last Admin: 06/24/18 10:27 Dose: 10 ml Documented by: Sodium Chloride (Sodium Chloride Flush Syringe 10 Ml) 10 ml IV PRN PRN PRN Reason: LINE FLUSH Review of Systems All systems: negative Physical Examination Vital signs: Vital Signs Temp Pulse Resp BP Pulse Ox 98.3 F 90 21 124/90 96 06/21/18 21:03 06/21/18 21:03 06/21/18 21:03 06/21/18 21:03 06/21/18 21:03 General appearance: no acute distress, alert Eyes: non-icteric ENT: other (edentulous) Effort: normal Ascultation: Bilateral: rales (dry velcro like) Results - Laboratory Findings CBC and BMP: 06/21/18 21:27 06/24/18 04:49 Abnormal lab findings: Abnormal Labs 06/21/18 06/21/18 06/22/18 21:27 21:27 03:17 Hgb 15.0 H Hct 43.0 H MCH 33 H MCHC 35 H Sodium 136 L Potassium Chloride BUN Creatinine 0.6 L Glucose POC Glucose Phosphorus Troponin T 0.030 H D Triglycerides 180 H LDL Cholesterol Direct 131 H HDL Cholesterol 30 L 06/23/18 06/24/18 06/24/18 21:03 04:49 07:54 Hgb Hct MCH MCHC Sodium 136 L Potassium 3.2 L D Chloride 93.8 L BUN 6 L Creatinine 0.4 L Glucose 133 H POC Glucose 147 H 123 H Phosphorus 1.00 L Troponin T Triglycerides LDL Cholesterol Direct HDL Cholesterol 06/24/18 12:26 Hgb Hct MCH MCHC Sodium Potassium Chloride BUN Creatinine Glucose POC Glucose 122 H Phosphorus Troponin T Triglycerides LDL Cholesterol Direct HDL Cholesterol - Diagnostic Findings Chest x-ray: image reviewed CT scan - chest: image reviewed Assessment and Plan 57 y/o female with acute respiratory failure, chest pain and cardiac disease. 1. Most likely she does have COPD. No structural evidence of this seen on CT. She does sound and could look like (lots of motion artifact on CT) she has ILD. 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 She also appears to have been volume overloaded on yesterday and with additional lasix therapy this has helped. Unfortunately she is not funded and she may need home O2. Suggest obtaining six minute walk prior to discharge 2. Would stop steroids and now, no wheezing on exam and with volume removal she is better. One to two doses of steroids would not have improved her this fast. 3. Discussed smoking cessation and the importance of this. 4. Patient can follow up with her PCP who has been managing any other breathing issues. Will sign off at this point.
[2018-06-24] MEDS: LOPRESSOR PO SCH (21:42)
--- NOTE | 2018-06-24 23:27 | Treadmill Report ---
NUCLEAR MYOCARDIAL PERFUSION IMAGING REPORT PROCEDURE AND FINDINGS: The patient underwent pharmacological stress testing with IV Lexiscan. Perfusion images were obtained at rest and post-vasodilation using technetium pyrophosphate, tetrofosmin injection. Also, stress gated study was performed. Perfusion images showed very large defect involving the entire anterior wall and septum post-vasodilation and this remains more or less unchanged in the rest images. Normal inferior and inferolateral perfusion was noted post-vasodilation and at rest. The patient's transient ischemic dilation ratio was found to be 1.09. Gated studies showed normal sized left ventricle with diffuse hypokinesis, ejection fraction of 31% noted. Perfusion defects were found to be mostly fixed. FINAL IMPRESSION: Large fixed anterior and anteroseptal defect consistent with scar and no significant reversible ischemia noted. Ejection fraction is moderately reduced at 31% with normal sized left ventricle. This was felt to be a moderate risk for future cardiac events. JOB# [id number] GORGE/CHET
[2018-06-25 07:03] LABS: BUN/Creatinine Ratio 35; Blood Urea Nitrogen 14 mg/dL (7-17); Hemolysis Index 23
[2018-06-25] MEDS: DUONEB *Not for PRN Use IH SCH ×2 (07:27→13:10)
[2018-06-25] MEDS ORDERED: PERCOCET 5/325 PO PRN (08:24)
[2018-06-25] MEDS ORDERED: DILAUDID IV PRN (08:24)
[2018-06-25] MEDS ORDERED: K-DUR PO ONE (09:00)
[2018-06-25] MEDS: ZITHROMAX PO SCH (09:07)
[2018-06-25] MEDS: LOVENOX SUB-Q SCH (09:08)
[2018-06-25] MEDS: LOPRESSOR PO SCH (09:08)
[2018-06-25] MEDS: LASIX IV SCH (09:08)
[2018-06-25] MEDS: ROCEPHIN/NS 1 GM/50 ML 1 GM/50 ML BAG IV SCH (09:09)
[2018-06-25] MEDS: SODIUM CHLORIDE FLUSH SYRINGE 10 ML IV SCH (09:09)
[2018-06-25] MEDS: PEPCID PO SCH (09:09)
[2018-06-25] MEDS: ZESTRIL PO SCH (10:30)
[2018-06-25] MEDS ORDERED: MILK OF MAGNESIA PO PRN (10:43)
[2018-06-25] MEDS ORDERED: MILK OF MAGNESIA PO ONE (10:43)
--- NOTE | 2018-06-25 10:49 | Progress Note ---
Assessment and Plan Assessment and plan: --Hypokalemia; will replace with 40 mEq of KCl --History of constipation; milk of magnesia, stool softeners plenty of fluids --Acute hypoxic respiratory failure ; Probably secondary to acute exacerbation of CHF, partly COPD exacerbation Continue anti-failure medications, oxygen titrated O2 sats more than 90% Nebulizers IV steroids, evaluation for home oxygen at discharge --Acute systolic congestive heart failure; EF 30% manage with diuretics, beta blockers, geovanna inhibitors, nitrates Low-sodium diet, fluid restriction --COPD: Acute exacerbation, oxygen nebulizers and IV steroids Antibiotics, supportive --Sepsis, pneumonia; community-acquired ,antibiotics, follow cultures, supportive care --Atypical chest pain, rule out ACS Stress test negative for reversible ischemia , ejection fraction 30% --History of CAD status post stent placement; stable Cardiology evaluation inpatient versus outpatient --Dyslipidemia; continue statin --Tobacco abuse Smoking cessation nicotine patch as needed --DVT prophylaxis with Lovenox Ambulate as tolerated/physical therapy if needed Monitor the patient closely and adjust management as needed Possible discharge 1-2 days if stable History Interval history: Patient seen and examined medical records reviewed No new events reported by the nursing Complains of some constipation Feels better and wants to go home Saturating well at roommate requesting Alert awake oriented Quadrant signs noted Hospitalist Physical - Constitutional Vitals: Temp Pulse Resp BP Pulse Ox 97.4 F L 124 H 24 101/64 95 06/25/18 08:49 06/25/18 09:08 06/25/18 08:49 06/25/18 09:08 06/25/18 08:49 General appearance: Present: no acute distress, well-nourished - EENT Eyes: Present: PERRL, EOM intact - Neck Neck: Present: supple, normal ROM - Respiratory Respiratory effort: normal Respiratory: bilateral: diminished, negative: rales, rhonchi, wheezing - Cardiovascular Rhythm: regular Heart Sounds: Present: S1 & S2 - Extremities Extremities: no ischemia, No edema - Abdominal General gastrointestinal: soft, non-tender, non-distended, normal bowel sounds - Integumentary Integumentary: Present: clear, warm - Psychiatric Psychiatric: appropriate mood/affect, cooperative - Neurologic Neurologic: CNII-XII intact, moves all extremities Results - Labs CBC & Chem 7: 06/21/18 21:27 06/25/18 04:58 Labs: Laboratory Last Values WBC 8.3 K/mm3 (4.5-11.0) 06/21/18 21: RBC 4.55 M/mm3 (3.65-5.03) 06/21/18 21:27 Hgb 15.0 gm/dl (10.1-14.3) H 06/21/18 21:27 Hct 43.0 % (30.3-42.9) H 06/21/18 21:27 MCV 95 fl (79-97) 06/21/18 21: MCH 33 pg (28-32) H 06/21/18 21: MCHC 35 % (30-34) H 06/21/18 21: RDW 14.5 % (13.2-15.2) 06/21/18 21: Plt Count 371 K/mm3 (140-440) 06/21/18 21:27 Lymph % (Auto) 34.0 % (13.4-35.0) 06/21/18 21:27 Blaine % (Auto) 7.3 % (0.0-7.3) 06/21/18 21: Eos % (Auto) 2.2 % (0.0-4.3) 06/21/18 21: Baso % (Auto) Billing Associate 06/21/18 21:27 Lymph # 2.8 K/mm3 (1.2-5.4) 06/21/18 21:27 Blaine # 0.6 K/mm3 (0.0-0.8) 06/21/18 21: Eos # 0.2 K/mm3 (0.0-0.4) 06/21/18 21: Baso # 0.1 K/mm3 (0.0-0.1) 06/21/18 21: Seg Neutrophils % 54.9 % (40.0-70.0) 06/21/18 21: Seg Neutrophils # 4.6 K/mm3 (1.8-7.7) 06/21/18 21:27 Sodium 139 mmol/L (137-145) 06/25/18 04:58 Potassium 3.3 mmol/L (3.6-5.0) L 06/25/18 04:58 Chloride 98.0 mmol/L (98-107) 06/25/18 04:58 Carbon Dioxide 26 mmol/L (22-30) 06/25/18 04:58 Anion Gap 18 mmol/L 06/25/18 04:58 BUN 14 mg/dL (7-17) 06/25/18 04:58 Creatinine 0.4 mg/dL (0.7-1.2) L 06/25/18 04:58 Estimated GFR > 60 ml/min 06/25/18 04:58 BUN/Creatinine Ratio 35 % 06/25/18 04:58 Glucose 140 mg/dL (65-100) H 06/25/18 04:58 POC Glucose 123 (70-105) H 06/25/18 07:43 Lactic Acid 1.70 mmol/L (0.7-2.0) 06/22/18 00:37 Calcium 8.0 mg/dL (8.4-10.2) L 06/25/18 04:58 Phosphorus 1.00 mg/dL (2.5-4.5) L 06/24/18 04:49 Magnesium 2.00 mg/dL (1.7-2.3) 06/24/18 04:49 Troponin T 0.030 ng/mL (0.00-0.029) H D 06/22/18 03:17 Triglycerides 180 mg/dL (2-149) H 06/22/18 03:17 Cholesterol 177 mg/dL (50-199) 06/22/18 03:17 LDL Cholesterol Direct 131 mg/dL (50-130) H 06/22/18 03:17 HDL Cholesterol 30 mg/dL (40-59) L 06/22/18 03:17 Cholesterol/HDL Ratio 5.90 % 06/22/18 03:17 Active Medications - Current Medications Current Medications: Generic Name Dose Route Start Last Admin Trade Name Freq PRN Reason Stop Dose Admin Acetaminophen 650 mg 06/21/18 23:43 06/25/18 09:07 Tylenol PO 650 mg Q4H PRN Administration Pain MILD(1-3)/Fever >100.5/SCOTT Albuterol/Ipratropium 1 ampul 06/25/18 08:00 06/25/18 07:27 Duoneb *Not For Prn Use* IH 1 ampul TIDRT JOSELIN Administration Alprazolam 0.25 mg 06/23/18 10:00 06/24/18 21:53 Xanax PO 0.25 mg Q8H PRN Administration Anxiety Atorvastatin Calcium 40 mg 06/23/18 22:00 06/24/18 21:37 Lipitor PO 40 mg QHS JOSELIN Administration Azithromycin 500 mg 06/23/18 10:00 06/25/18 09:07 Zithromax PO 500 mg QDAY JOSELIN Administration Enoxaparin Sodium 40 mg 06/22/18 10:00 06/25/18 09:08 Lovenox SUB-Q 40 mg QDAY JOSELIN Administration Famotidine 20 mg 06/21/18 23:45 06/25/18 09:09 Pepcid PO 20 mg BID JOSELIN Administration Furosemide 40 mg 06/23/18 22:00 06/25/18 09:08 Lasix IV 40 mg BID JOSELIN Administration Hydromorphone HCl 1 mg 06/25/18 08:24 Dilaudid IV Q12H PRN Pain , Severe (7-10) Ceftriaxone Sodium 1 gm in 50 mls @ 100 mls/hr 06/22/18 10:00 06/25/18 09:09 Rocephin/Ns 1 Gm/50 Ml IV 100 mls/hr Q24HR JOSELIN Administration Protocol Lisinopril 10 mg 06/23/18 10:00 06/25/18 10:30 Zestril PO Not Given QDAY JOSELIN Magnesium Hydroxide 30 ml 06/25/18 10:43 Milk Of Magnesia PO 06/25/18 10:44 ONCE ONE Magnesium Hydroxide 30 ml 06/25/18 10:43 Milk Of Magnesia PO QDAY PRN Constipation Metoprolol Tartrate 25 mg 06/24/18 22:00 06/25/18 09:08 Lopressor PO 25 mg BID JOSELIN Administration Ondansetron HCl 4 mg 06/21/18 23:43 06/22/18 18:16 Zofran IV 4 mg Q8H PRN Administration Nausea And Vomiting Oxycodone/Acetaminophen 1 tab 06/25/18 08:24 Percocet 5/325 PO Q6H PRN Pain, Moderate (4-6) Sodium Chloride 10 ml 06/22/18 10:00 06/25/18 09:09 Sodium Chloride Flush Syringe 10 Ml IV 10 ml BID JOSELIN Administration Sodium Chloride 10 ml 06/21/18 23:43 Sodium Chloride Flush Syringe 10 Ml IV PRN PRN LINE FLUSH Nutrition/Malnutrition Assess - Dietary Evaluation Nutrition/Malnutrition Findings: Nutrition Notes Start: 06/22/18 15:13 Freq: Status: Active Protocol: Document 06/23/18 13:57 RM (Rec: 06/23/18 14:05 RM [id number]) Nutrition Notes Initial or Follow up Assessment Current Diagnosis COPD,Coronary Artery Disease, Heart Failure Current Diet Cardiac diet Labs/Tests Reviewed Pertinent Medications Lasix, Solu-Medrol Height 5 ft Weight 66 kg Usual Body Weight 68.18 kg Copen Body Weight (kg) 45.45 BMI 28.4 Weight change and time frame 3.2 % wt loss X 2-3 weeks Subjective/Other Information Pt stated that [employer] her appetite was poor and she only drank fluids X 1 week. Stated she has only had milk since admission. Stated UBW was 150 lbs 2-3 weeks ago. No temporal or orbital wasting . Burn Absent Trauma Absent #1 Nutrition Diagnosis Inadequate oral intake Etiology decreased appetite As Evidenced by Signs and Symptoms pt statement that she has only had milk since admission Is patient on ventilator? No Is Patient Ambulatory and/or Out of Bed No REE-(Williams-St. Jeor-confined to bed) [phone] Calculation Used for Recommendations Williams-St Jeor Additional Notes Protein need: 53-66 g (0.8-1 g /kg) Fluid needs: 1 ml/kcal Nutrition Intervention Change Diet Order: Continue Cardiac Add Supplement/Snack (indicate name/kcal Ensure Enlive 1 daily /protein ) Provides kCal: 350 Provides Protein (gm) 20 Goal #1 Meet at least 75% of calorie and protein needs via PO and ONS intakes Anticipated Discharge Needs: Cardiac diet Follow-Up By: 06/27/18 Additional Comments Follow for PO and ONS intakes
--- NOTE | 2018-06-25 11:02 | Progress Note ---
Assessment and Plan 57-year-old female Hypokalemia replete CAD/PCI 2008 Stress test negative for ischemia Medical management and continue Lipitor/Zestril/Lopressor Patient should follow-up with Dr. Cote's outpatient [phone] Acute on Chronic systolic heart failure ejection fraction 25-30% Strict I's and O's Daily weights Consider changing diuretic to PO Acute COPD exacerbation Hyperlipidemia Tobacco abuse Subjective Date of service: 06/25/18 Principal diagnosis: COPD; HF Interval history: Patient is sitting up in bed states that she feels much better. The patient decided that she was able to have a bowel movement she denies any chest pain and reports her breathing is much improved Objective Vital Signs Temp Pulse Pulse Resp Resp BP Pulse Ox 06/25/18 09:08 124 H 101/64 06/25/18 08:49 97.4 F L 124 H 24 101/64 95 06/25/18 07:37 113 H 20 06/25/18 07:27 115 H 20 96 06/25/18 04:35 105 H 06/25/18 03:54 98.3 F 107 H 12 97/65 97 06/24/18 23:36 98.1 F 125 H 12 85/53 97 06/24/18 21:42 126 H 96/69 06/24/18 21:41 20 96/69 06/24/18 20:50 98 06/24/18 20:18 132 H 16 06/24/18 20:09 98 06/24/18 20:06 130 H 15 06/24/18 19:29 97.4 F L 128 H 14 97/68 95 06/24/18 16:18 97.9 F 124 H 18 88/63 93 06/24/18 13:05 123 H 20 06/24/18 12:54 126 H 20 06/24/18 11:20 97.9 F 124 H 20 87/60 96 - Physical Examination HEENT: Positive: PERRL Neck: Positive: neck supple, trachea midline Cardiac: Positive: Reg Rate and Rhythm Lungs: Positive: Normal Exam Neuro: Positive: Grossly Intact Abdomen: Positive: Unremarkable, Soft, Distended. Negative: Tender Skin: Negative: Rash Musculoskeletal: No Pain Gait: Normal Gait Extremities: Present: warm. Absent: edema - Labs and Meds Comprehensive Metabolic Panel 06/25/18 Range/Units 04:58 Sodium 139 (137-145) mmol/L Potassium 3.3 L (3.6-5.0) mmol/L Chloride 98.0 (98-107) mmol/L Carbon Dioxide 26 (22-30) mmol/L BUN 14 (7-17) mg/dL Creatinine 0.4 L (0.7-1.2) mg/dL Glucose 140 H (65-100) mg/dL Calcium 8.0 L (8.4-10.2) mg/dL - Imaging and Cardiology EKG: report reviewed, image reviewed Nuclear stress test: report reviewed (MPI stress test which was negative for active ischemia, showed fixed defects and EF 31%.) Echo: report reviewed (Echo reviewed - EF 25-30%, abnormal diastolic function, basal anterior, mid anteroseptal, mid anterior, mid inderoseptal, apical septal, apical anterior and apical lateral wall segments hypokinetic, trace MR, mild to mod TR, RVSP 40mmHg.) - EKG Sinus rhythms and dysrhythmias: sinus rhythm
--- NOTE | 2018-06-25 13:15 | Discharge Summary ---
Providers - Providers Date of Admission: 06/23/18 15:35 Date of discharge: 06/25/18 Attending physician: HILL ZUNIGA 06/23/18 08:16 Consult to Physician [CONS] Routine Comment: Consulting Provider: RONALDO ABERNATHY Physician Instructions: Reason For Exam: acute syst CHF EF 30% Primary care physician: JEANNE PUENTES MD Hospitalization Reason for admission: atypical chest pain/shortness of breath Condition: Stable Pertinent studies: Chest x-ray; bilateral interstitial and airspace disease CT chest; prominent interstitium throughout both lungs Nonspecific interstitial lung disease or interstitial edema Mildly enlarged mediastinal lymph nodes Echocardiogram; LV ejection fraction 25-30%, abnormal left ventricular diastolic function observed Stress test ; large fixed and deviation and anteroseptal defect consistent with the scars no significant reversible ischemia noted Hospital course: A pleasant 57-year-old female patient with significant history of COPD was admitted through emergency room with atypical chest pain and worsening shortness of breath Patient had elevated troponins, evaluated by cardiology, underwent stress test which showed fixed large defect, and new onset systolic congestive heart failure with ejection fraction of 25-50% Echocardiogram also to previous impaired relaxation of the left ventricle, possible diastolic dysfunction Patient was managed with anti-failure medications and had worsening shortness , started nebulizers low-dose IV steroids and IV antibiotics evaluated by oxygen therapy technician advised to optimize the medications Patient symptoms significantly improved, today patient is comfortable Evaluated for home oxygen, resting and ambulatory room air O2 sats of more than 95% No indication for home oxygen Patient is hemodynamically and clinically stable at discharge Discharge diagnosis; --Acute hypoxic respiratory failure ; Probably secondary to acute exacerbation of CHF, partly COPD exacerbation Continue anti-failure medications, oxygen titrated O2 sats more than 90% Nebulizers IV steroids, evaluation for home oxygen at discharge --Acute systolic congestive heart failure; EF 30% manage with diuretics, beta blockers, guerline inhibitors, nitrates Low-sodium diet, fluid restriction --COPD:Acute exacerbation, oxygen nebulizers and IV steroids Antibiotics, supportive --Sepsis, pneumonia; community-acquired ,antibiotics, follow cultures, supportive care --Atypical chest pain, rule out ACS Stress test negative for reversible ischemia , ejection fraction 30% --History of CAD status post stent placement; stable Cardiology evaluation inpatient versus outpatient --Dyslipidemia; continue statin --Tobacco abuse Smoking cessation nicotine patch as needed --Hypokalemia; replaced with 40 mEq of KCl --History of constipation; milk of magnesia, stool softeners --DVT prophylaxis with Lovenox Patient is stable at discharge Disposition: DC-01 TO HOME OR SELFCARE Time spent for discharge: 32min Core Measure Documentation - Palliative Care Palliative Care/ Comfort Measures: Not Applicable - Core Measures Any of the following diagnoses?: heart failure - Heart Failure Discharge Requirements GUERLINE/ARB for LVSD if EF <40%: Yes Beta mannie at discharge: Yes Exam - Constitutional Vitals: Temp Pulse Resp BP Pulse Ox 97.4 F L 124 H 24 101/64 95 06/25/18 08:49 06/25/18 09:08 06/25/18 08:49 06/25/18 09:08 06/25/18 08:49 General appearance: Present: no acute distress, well-nourished - EENT Eyes: Present: PERRL, EOM intact - Neck Neck: Present: supple, normal ROM - Respiratory Respiratory effort: normal Respiratory: bilateral: diminished, negative: rales, rhonchi, wheezing - Cardiovascular Rhythm: regular Heart Sounds: Present: S1 & S2 - Extremities Extremities: no ischemia, No edema - Abdominal General gastrointestinal: Present: soft, non-tender, non-distended, normal bowel sounds - Integumentary Integumentary: Present: clear, warm - Musculoskeletal Musculoskeletal: strength equal bilaterally - Psychiatric Psychiatric: appropriate mood/affect, cooperative - Neurologic Neurologic: CNII-XII intact, moves all extremities Plan Activity: advance as tolerated, fall precautions Diet: low salt Special Instructions: smoking cessation Additional Instructions: Smoking cessation, nicotine patch as needed. Your resting O2 sats 97%, ambulatory O2 sat 95%, no indication for home oxygen Follow up with: JEANNE PUENTES MD [Primary Care Provider] - 7 Days LISBETH DEL ROSARIO MD [Staff Physician] - 7 Days YENNY MCGOVERN MD [Staff Physician] - 7 Days Prescriptions: Nicotine [Habitrol] 21 mg TD DAILY #30 patch Furosemide [Lasix TAB] 40 mg PO QDAY #30 tablet AtorvaSTATin [Lipitor] 40 mg PO QHS #30 tablet Metoprolol [Lopressor TAB] 25 mg PO BID #60 tablet Potassium Chloride 10 meq PO DAILY #30 tablet.er ALBUTEROL Inhaler(NF) [VENTOLIN Inhaler(NF)] 1 puff IH QID PRN #1 inha PRN Reason: Shortness Of Breath Lisinopril [Zestril TAB] 10 mg PO QDAY #30 tablet Azithromycin [Zithromax Z-LING] 0 mg PO DAILY #1 tab
[2018-06-25 13:16] VITALS: BP 91/59
== END 2018-06-25 15:50 | disposition home or self-care (01) | DRG 871 ==
LOC: ED 20:47 → 4A 22:21 → OBSVTOIN 06-23 15:35
PROVIDERS: ADMIT Internal Medicine; ATTEND Internal Medicine
DX: A41.9 Sepsis, unspecified organism (principal); J96.01 Acute respiratory failure with hypoxia; J18.9 Pneumonia, unspecified organism; I50.23 Acute on chronic systolic (congestive) heart failure; I42.9 Cardiomyopathy, unspecified; E78.5 Hyperlipidemia, unspecified; E83.39 Other disorders of phosphorus metabolism; E87.6 Hypokalemia; I08.1 Rheumatic disorders of both mitral and tricuspid valves; I11.0 Hypertensive heart disease with heart failure; I25.10 Atherosclerotic heart disease of native coronary artery without angina pectoris; J43.9 Emphysema, unspecified; F17.210 Nicotine dependence, cigarettes, uncomplicated; I25.2 Old myocardial infarction; Z95.5 Presence of coronary angioplasty implant and graft; Z71.6 Tobacco abuse counseling
CPT/HCPCS: 36415; 71045; 71250; 78452; 80048; 80061; 82140; 82962; 83735; 84100; 84484; 85025; 87040; 90686; 90732; 93005; 93010; 93017; 93306; 94640; 94760; 96374; 99406; G0378; A9270-GY; A9502; J0456; J0696; J1170; J1650; J1940; J2405; J2785; J2920; J7030; J7040; J7050

== ENCOUNTER 2019-03-22 13:28 | Outpatient (CLI) | payer OTHER ==
[2019-03-22] MEDS ORDERED: ALBUTEROL 2.5 MG/3 ML NEBU IH ONE (14:17)
== END 2019-03-22 13:29 | disposition home or self-care (01) ==
LOC: PF 13:28
PROVIDERS: ATTEND Internal Medicine
DX: Z02.71 Encounter for disability determination (principal)
CPT/HCPCS: 94060; 94640; 94729